=== PATIENT | female | born 1995 | race Two or more races ===

== ENCOUNTER 2025-02-26 20:57 | Emergency (ER) | payer MEDICAID, OTHER ==
[~2025-02-26] VITALS: Ht 165.1 cm; Wt 59.4 kg
[2025-02-26 21:00] VITALS: BP 126/67; PULSE 115; RESP 13; TEMP 98.9; O2SAT 97
--- NOTE | 2025-02-26 21:42 | ED.PDOC ---
History of Present Illness HPI Comments This patient is a 29-year-old female who arrives the ED today for evaluation of clicking and unusual global body feeling status post utilizing medication last night. Patient states she took some mirtazapine that was prescribed to her boyfriend for sleep concerns. Patient states she double dosed from his pr escribed dosing. Patient states it subsequent to utilize that medication, she has had shakiness feelings globally as well as an event of her lips being blue this morning. Patient denies any fever nausea or vomiting. Vital signs were stable at arrival. Chief Complaint: Allergic Reaction Time Seen by MD: 21:30 Reviewed Notes: Nurses Notes, Medications, Allergies Information Source: Patient, Friend Mode of Arrival: Ambulatory Severity: Mild Timing: Hours Duration: Since onset Prehospital treatment: Other (Utilization of un-prescribed medications) Past Medical History PAST MEDICAL HISTORY: Denies Past Medical History (Other): Insomnia Surgical History: Denies all surgeries CURING PRESS OPERATOR History: No Pertinent CURING PRESS OPERATOR History Family History Family History: Unknown Social History Smoker: Non-Smoker Alcohol: Denies ETOH Use Drugs: Denies Drug Use Lives In: Home Constitutional: denies: chills, diaphoresis, fatigue, fever, malaise, sweats, weakness, others EENTM: denies: blurred vision, double vision, ear bleeding, ear discharge, ear drainage, ear pain, ear ringing, eye pain, eye redness, hearing loss, mouth pain, mouth swelling, nasal discharge, nose bleeding, nose congestion, nose pain, photophobia, tearing, throat pain, throat swelling, voice changes, others Respiratory: denies: cough, hemoptysis, orthopnea, SOB at rest, shortness of breath, SOB with excertion, stridor, wheezing, others Cardiovascular: denies: chest pain, dizzy spells, diaphoresis, Dyspnea on exertion, edema, irregular heart beat, left arm pain, lightheadedness, palpitations, PND, syncope, others Gastrointestinal: denies: abdomen distended, abdominal pain, blood streaked bowels, constipated, diarrhea, dysphagia, difficulty swallowing, hematemesis, melena, nausea, poor appetite, poor fluid intake, rectal bleeding, rectal pain, vomiting, others Genitourinary: denies: abnormal vagina bleeding, burning, dyspareunia, dysuria, flank pain, frequency, hematuria, incontinence, pain, , vagina discharge, urgency, others Neurological: denies: dizziness, fainting, headache, left sided numbness, left sided weakness, numbness, paresthesia, pre-existing deficit, right sided numbness, right sided weakness, seizure, speech problems, tingling, tremors, weakness, others Musculoskeletal: reports: others (Patient states global unusual feeling.); denies: back pain, gout, joint pain, joint swelling, muscle pain, muscle stiffness, neck pain Integumetry: denies: bruises, change in color, change in hair/nails, dryness, laceration, lesions, lumps, rash, wounds, others Allergic/Immunocompromised: denies: Difficulty Healing, Frequent Infections, Hives, Itching, others Hematologic/Lymphatic: denies: anemia, blood clots, easy bleeding, easy bruising, swollen glands, others Endocrine: denies: excessive hunger, excessive sweating, excessive thirst, excessive urination, flushing, intolerance to cold, intolerance to heat, unexplained weight gain, unexplained weight loss, others Psychiatric: reports: anxiety; denies: bipolar disorder, depression, hopeless, panic disorder, schizophrenia, sleepless, suicidal, others All Other Systems: Reviewed and Negative (As per HPI) Physical Exam General Appearance: Mild Distress (Due to concerns related to global unusual feeling.), Normal HEENT: Normal ENT Inspection, Pharynx Normal, TMs Normal Neck: Full Range of Motion, Non-Tender, Normal, Normal Inspection Respiratory: Chest Non-Tender, Lungs Clear, No Accessory Muscle Use, No Respiratory Distress, Normal Breath Sounds Cardiovascular: No Edema, No JVD, No Murmur, No Gallop, Normal Peripheral Pulses, Regular Rate/Rhythm Breast Exam: Deferred Gastrointestinal: No Organomegaly, Non Tender, No Pulsatile Mass, Normal Bowel Sounds, Soft Genitalia: Deferred Pelvic: Deferred Rectal: Deferred Extremities: No calf tenderness, Normal capillary refill, Normal inspection, Normal range of motion, Non-tender, No pedal edema Neurologic: Alert, No Motor Deficits, Normal Affect, Normal Mood, No Sensory Deficits Cerebellar Function: Normal Reflexes: Normal Skin: Dry, Normal Color, Warm Lymphatic: No Adenopathy Was a procedure done? Was a procedure done?: No Differential Dx Considerations may include: adverse medication reaction, anxiety, panic attack X-Ray, Labs, Meds, VS Comment Spent extensive time discussing the patient's complaints with her. Advised her initially that the patient can never utilize medication that is not prescribed to her. Advised that she is experiencing side effects from medication that was not designed for her use. Advised good hydration and healthy nutrition over the next several weeks. Time of 1ST Reevaluation: 22:04 Reevaluation 1ST: Improved Consultation: PCP, Psychiatry Patient Education/Counseling: Diagnosis, Treatment, Need For Follow Up Family Education/Counseling: Diagnosis, Treatment, Need For Follow Up Departure 1 Departure Time of Disposition: 22:04 Impression: Primary Impression: Side effect of medication Disposition: 01 HOME / SELF CARE / HOMELESS Condition: Stable Additional Instructions: Advised patient cease mirtazapine use moving forward. Advised good hydration and healthy nutrition for the next few weeks. Discharged With: Self, Friend Critical Care Note Critical Care Time?: No Stability Stability form required: No Heart Score Heart Score: Heart Score Response (Comments) Value History N/A 0 EKG N/A 0 Age N/A 0 Risk Factors N/A 0 Troponin N/A 0 Total 0 I personally scribed for BECKY PITTS PAC ([email or web address]) on 02/26/25 at 21:42. Electronically submitted by Doc Brown ([email or web address]). I personally scribed for BECKY PITTS PAC ([email or web address]) on 02/26/25 at 21:49. Electronically submitted by Doc Brown ([email or web address]). BECKY PITTS PAC February 26, 2025 21:42
== END 2025-02-26 23:01 | disposition home or self-care (01) ==
LOC: ER 21:11
DX: R53.1 Weakness (principal); T43.025A Adverse effect of tetracyclic antidepressants, initial encounter; Y92.89 Other specified places as the place of occurrence of the external cause